=== PATIENT | male | born 1970 | race Caucasian/White ===

== ENCOUNTER 2021-05-13 13:09 | Emergency (ER) | payer OTHER ==
[2021-05-13 13:19] VITALS: RESP 18; TEMP 98.3
[2021-05-13] MEDS ORDERED: diphenhydrAMINE 50 MG/ML 1 ML VIAL IVP STA (13:25)
[2021-05-13] MEDS ORDERED: LORazepam 2 MG/ML INJ IV STA (13:25)
--- NOTE | 2021-05-13 13:57 | ED ---
General Adult HPI - General Chief complaint: Recheck/Abnormal Lab/Rx Stated complaint: Allergic Reaction Time Seen by Provider: 05/13/21 13:13 Source: patient, EMS, RN notes reviewed, old records reviewed Limitations: no limitations - History of Present Illness Initial comments: 50-year-old male who has been at [facility] for rehabilitation from alcohol abuse presenting with abnormal jaw movements which began this morning. He did receive an extra dose of Haldol this morning. Patient states that the movements are quite painful. He denies any other symptoms. He states that the rehabilitation process has been going well. - Related Data Previous Rx's Medication Instructions Recorded diphenhydrAMINE [Benadryl] 25 mg PO TID #21 capsule 05/13/21 Allergies Allergy/AdvReac Type Severity Reaction Status Date / Time No Known Allergies Allergy Verified 05/13/21 13:36 Review of Systems ROS Statement: Those systems with pertinent positive or pertinent negative responses have been documented in the HPI. ROS Other: All systems not noted in ROS Statement are negative. Past Medical History Past Medical History: Hypertension Additional Past Medical History / Comment(s): Alcoholism, History of Any Multi-Drug Resistant Organisms: None Reported Past Surgical History: No Surgical Hx Reported Past Psychological History: Anxiety Smoking Status: Never smoker Past Alcohol Use History: Abuse Past Drug Use History: Marijuana General Exam Limitations: no limitations General appearance: alert, in no apparent distress Head exam: Present: atraumatic, normocephalic Eye exam: Present: PERRL ENT exam: Present: other (Abnormal rhythmic movement of the jaw) Neck exam: Present: normal inspection. Absent: tenderness, meningismus Respiratory exam: Present: normal lung sounds bilaterally. Absent: respiratory distress, wheezes Cardiovascular Exam: Present: regular rate, normal rhythm GI/Abdominal exam: Present: soft. Absent: distended, tenderness, guarding Extremities exam: Present: normal inspection, normal capillary refill. Absent: pedal edema Neurological exam: Present: alert, oriented X3, CN II-XII intact. Absent: motor sensory deficit Psychiatric exam: Present: anxious Skin exam: Present: warm, dry, intact. Absent: cyanosis, diaphoretic Course Vital Signs 05/13/21 13:13 Temperature 98.3 F Pulse Rate 85 Respiratory 18 Rate Blood Pressure 161/89 O2 Sat by Pulse 96 Oximetry Medical Decision Making - Medical Decision Making Patient's symptoms completely resolved with Benadryl and Ativan. Will be prescribed Benadryl. Haldol is added to his ALLERGY list. Disposition Clinical Impression: Dystonic drug reaction Disposition: HOME SELF-CARE Condition: Fair Instructions (If sedation given, give patient instructions): Extrapyramidal Symptoms (ED) Prescriptions: diphenhydrAMINE [Benadryl] 25 mg PO TID #21 capsule Is patient prescribed a controlled substance at d/c from ED?: No Referrals: None,Stated [Primary Care Provider] - 1-2 days Aramis Lombardi MD [REFERRING] - 1-2 days Time of Disposition: 13:57
[2021-05-13 14:48] VITALS: BP 114/73; PULSE 87
== END 2021-05-13 14:48 | disposition home or self-care (01) ==
LOC: EC 13:09
DX: G24.02 Drug induced acute dystonia (principal); I10 Essential (primary) hypertension
CPT/HCPCS: 99283; 96374; 96375; J2060; J1200